=== PATIENT | female | born 1960 | race Caucasian/White ===

== ENCOUNTER 2021-04-06 08:45 | Outpatient (CLI) | payer BC | END 2021-04-06 08:46 | disposition home or self-care (01) | LOC: BICRAD 08:45 | PROVIDERS: ATTEND Internal Medicine Critical Care Medicine | DX: R06.00 Dyspnea, unspecified (principal) | CPT/HCPCS: 71046 ==

== ENCOUNTER 2022-04-07 08:40 | Outpatient (CLI) | payer BC | END 2022-04-07 08:41 | disposition home or self-care (01) | LOC: BICCT 08:40 | PROVIDERS: ATTEND Internal Medicine Critical Care Medicine | DX: R91.8 Other nonspecific abnormal finding of lung field (principal) | CPT/HCPCS: 71250 ==